=== PATIENT | male | born 1940 | race Caucasian/White ===

== ENCOUNTER → 2018-04-03 | Outpatient (CLI) | payer MEDICARE, OTHER ==
--- NOTE | 2018-04-03 08:29 | RADIOLOGY REPORT (SQ) ---
EXAM DESCRIPTION: PELVIS AP COMPLETED DATE/TIME: 04/03/2018 7:35 am REASON FOR STUDY: TO SCREEN FOR RADIOPAQUE FOREIGN BODY MRI GABBI Aldridge 54.16 RADICULOPATHY, LUMBAR REGION COMPARISON: None. NUMBER OF VIEWS: One view TECHNIQUE: AP Pelvis LIMITATIONS: None. FINDINGS: MINERALIZATION: Normal. HIPS: No acute fracture or dislocation. No worrisome bone lesions. PELVIS AND SACRUM: No acute fracture or dislocation. No worrisome bone lesions. PUBIS AND ISCHIUM: No acute fracture. LOWER LUMBAR SPINE: Arthritic changes. SOFT TISSUES: A 6 mm metallic foreign body is projected over the left ilium. OTHER: Arterial calcification noted. 2 Small metallic clip projected below the pelvis on the right. IMPRESSION: No acute bony changes. 6 mm metallic foreign body projected over the left ilium. Small metal clips below the pelvis. TECHNICAL DOCUMENTATION: JOB ID: [id number] [employer]- All Rights Reserved Reading location - IP/workstation name: [email or web address]
--- NOTE | 2018-04-03 10:01 | RADIOLOGY REPORT (SQ) ---
EXAM DESCRIPTION: MRI LUMBAR SPINE WITHOUT COMPLETED DATE/TIME: 04/03/2018 8:09 am REASON FOR STUDY: LUMBAR RADICULOPATHY (M54.16) M54.16 RADICULOPATHY, LUMBAR REGION COMPARISON: None. TECHNIQUE: Sagittal and Axial imaging includes T1, T2, STIR and gradient echo sequences. Coronal T2/ HASTE imaging. LIMITATIONS: None. FINDINGS: VISUALIZED UPPER ABDOMEN: Limited evaluation. No acute or suspicious findings suggested. SEGMENTATION: No transitional anatomy. The lowest well-developed disc space is labeled L5-S1. ALIGNMENT: Degenerative convex leftward lumbar curvature VERTEBRAE: Intact. BONE MARROW: Mixed fatty and sclerotic reactive vertebral body endplate changes left greater than rig ht at L1-2, and throughout the L4-5 level intervertebral discs signal DISC SIGNAL: Diffuse decreased T2 weighted intervertebral disc signal. POSTERIOR ELEMENTS: Generally intact. No pars defect evident. HARDWARE: None in the spine. CORD AND CONUS: Normal in size and signal intensity. Conus at the L1 level. SOFT TISSUES: No aortic aneurysm seen. No bulky retroperitoneal adenopathy or mass. No paraspinal mas s or fluid. T11-12: Mild bilateral facet hypertrophy. No central or foraminal stenosis. T12-L1: Mild bilateral facet hypertrophy. No central or foraminal stenosis. L1-L2: Asymmetric broad diffuse disc bulge and bony spurring in the left paracentral, foraminal, and lateral region with reactive vertebral body endplate changes. No central or right foraminal stenosis . Mild left foraminal narrowing. L2-L3: Minimal posterior disc bulge, mild to moderate bilateral facet and ligament hypertrophy. No c entral stenosis. No significant foraminal narrowing. L3-L4: Broad diffuse posterior disc bulge and bony spurring and moderate bilateral facet and ligament hypertrophy causes mild central canal narrowing. There is moderate right and mild left foraminal na rrowing without definite exiting L3 nerve root impingement. L4-L5: Broad diffuse posterior disc bulge and bony spurring is present with bulky bilateral facet and ligament hypertrophy. Borderline central canal narrowing. High-grade right foraminal stenosis with effacement of the fat around the exiting right L4 nerve root. Moderate left foraminal narrowing. L5-S1: Mild diffuse posterior disc bulge and bony spurring. Mild bilateral facet and ligament hypert rophy. No central stenosis. Mild bilateral foraminal narrowing without exiting L5 nerve root imping ement. SACRUM: Visualized upper sacrum intact. OTHER: No other significant findings. IMPRESSION: Degenerative changes with high-grade right L4-5 foraminal narrowing. TECHNICAL DOCUMENTATION: JOB ID: [id number] [employer]- All Rights Reserved Reading location - IP/workstation name: [email or web address]
== END ==
LOC: RAD 06:42
PROVIDERS: ATTEND Orthopaedic Surgery
DX: M54.16 Radiculopathy, lumbar region (principal); M48.061 Spinal stenosis, lumbar region without neurogenic claudication
CPT/HCPCS: 72148; 72170